=== PATIENT | female | born 2000 | race Caucasian/White ===

== ENCOUNTER 2020-01-26 21:10 | Emergency (ER) | payer OTHER ==
[2020-01-26] MEDS ORDERED: DIPH/PERTUSS(ACELL)/TETANUS VAC/PF 0.5 ML SYR (>=10YO) IM ONE ×2 (21:12→22:00)
[2020-01-26] MEDS ORDERED: LIDOCAINE 1% INJ-PF (10 MG/ML) 30 ML SDV INJ ONE ×2 (21:12→22:51)
--- NOTE | 2020-01-26 21:15 | ER Document Report ---
ED Medical Screen (RME) - General Chief Complaint: Arm Injury Stated Complaint: LEFT ARM CUT Time Seen by Provider: 01/26/20 21:12 Mode of Arrival: Ambulatory Information source: Patient Notes: Patient states she was running outside fell cutting her left forearm on an unknown object. Patient with large laceration to the volar aspect of the left forearm. No active bleeding. Patient does complain of some tingling to the left hand. I have greeted and performed a rapid initial assessment of this patient. A comprehensive ED assessment and evaluation of the patient, analysis of test results and completion of the medical decision making process will be conducted by additional ED providers. Physical Exam - Skin Skin irregularity: Laceration - 8 cm laceration to volar aspect of left forearm
[2020-01-26] MEDS ORDERED: LIDOCAINE 1% INJ-PF (10 MG/ML) 30 ML SDV ONE (21:40)
--- NOTE | 2020-01-26 21:45 | RADIOLOGY REPORT (SQ) ---
EXAM DESCRIPTION: XR FOREARM 2 VIEWS COMPLETED DATE/TME: 01/26/2020 21:12 CLINICAL HISTORY: 19 years, Female, fall, L FA lac COMPARISON: None. NUMBER OF VIEWS: 2 TECHNIQUE: Frontal and lateral radiographs were acquired LIMITATIONS: None. 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 Otherwise, visualized osseous structures appear normal without acute fracture or dislocation. IMPRESSION: No acute osseous anomaly. copyright 2010 [email or web address]- All Rights Reserved
--- NOTE | 2020-01-26 23:01 | ER Document Report ---
ED Extremity Problem, Upper - General Chief Complaint: Laceration Stated Complaint: LEFT ARM CUT Time Seen by Provider: 01/26/20 21:12 Mode of Arrival: Ambulatory Information source: Patient Notes: 19-year-old female presents to the emergency department with a complaint of a laceration to the left forearm. Apparently she was outside and states she fell not sure what she may have hit but sustained a 8 cm laceration across the left distal forearm. There is active bleeding a pressure dressing was applied and she was brought to the emergency department patient is not sure of her tetanus status. - Related Data Allergies/Adverse Reactions: No Known Allergies Allergy (Unverified 01/26/20 21:16) Past Medical History - General Information source: Patient - Social History Smoking Status: Never Smoker Chew tobacco use (# tins/day): No Frequency of alcohol use: None Drug Abuse: None Family History: Reviewed & Not Pertinent Patient has suicidal ideation: No Patient has homicidal ideation: No Review of Systems - Review of Systems Notes: Constitutional: Negative for fever. HENT: Negative for sore throat. Eyes: Negative for visual changes. Cardiovascular: Negative for chest pain. Respiratory: Negative for shortness of breath. Gastrointestinal: Negative for abdominal pain, vomiting or diarrhea. Genitourinary: Negative for dysuria. Musculoskeletal: Negative for back pain. Skin: + Laceration left forearm. Neurological: Negative for headaches, weakness or numbness. 10 point ROS negative except as marked above and in HPI. Physical Exam - Vital signs Vitals: Temp Pulse Resp BP Pulse Ox 97.7 F 128 H 16 139/89 H 98 01/26/20 21:12 01/26/20 21:12 01/26/20 21:12 01/26/20 21:12 01/26/20 21:12 - Notes Notes: PHYSICAL EXAMINATION: Physical Exam: General: Well-nourished well-developed obese female in no acute distress HEENT: NC/AT, pupils equal round and reactive to light, MM moist,nares clear, oropharynx clear, airway patent Neck: supple, no adenopathy, no masses. Good range of motion Lungs: clear, no wheezing, no rales no rhonchi CVS: Regular rate and rhythm no murmur gallop or rub Abdomen: Soft, active, nontender, no masses, no hepatosplenomegaly Ext: Range of motion in the left hand, good pulses, neurovascular otherwise intact. No edema, clubbing or cyanosis. Neuro: Alert and responsive, moving all 4 extremities on command, cranial nerves intact, no focal findings Skin: Clean edged 8 cm laceration across the distal third of the forearm, into the fatty tissue with bleeding. PSYCH: Normal mood, normal affect. Course - Re-evaluation Re-evalutation: 01/26/20 22:58 Patient with large laceration into the fatty tissue of the left forearm, there are 2 very superficial epidermis lacerations noted beside the laceration. Patient states that she has cats. Wound is suspicious with self-inflicted la ceration, however the patient is adamant that she was cut on something when she fell outside. Patient is given a Tdap booster and a wound repair is performed. - Vital Signs Vital signs: Temp Pulse Resp BP Pulse Ox 97.7 F 114 H 14 115/73 100 01/26/20 21:12 01/26/20 23:20 01/26/20 23:20 01/26/20 23:20 01/26/20 23:20 Procedures - Laceration/Wound Repair Left Volar Arm Time completed: 22:35 Wound length (cm): 8 Wound's Depth, Shape: Linear Laceration pre-procedure: Chloraprep applied Anesthetic type: 1% Lidocaine Volume Anesthetic (mLs): 15 Wound explored: Clean, No foreign body removed Irrigated w/ Saline (mLs): 12 Wound Repaired With: Sutures Suture Size/Type: 5:0, Vicryl, 4:0, Prolene - 12, 4-0 Prolene sutures were placed to close the skin. Good approximation and bleeding is controlled. Layer Closure?: Yes - 6, 5-0 Vicryl sutures were placed in the fatty tissue to approximate the de Deep Layer Suture Size/Type: 5:0 Number Deep Layer Sutures: 6 Post-procedure wound care: Sterile dressing applied Post-procedure NV exam normal: Yes Complications: No Notes: 01/26/20 23:03 Suture closed with good approximation patient tolerated procedure well without complications. Discharge - Discharge Clinical Impression: Laceration of left forearm Qualifiers: Encounter type: initial encounter Qualified Code(s): S51.812A - Laceration without foreign body of left forearm, initial encounter Condition: Good Disposition: HOME, SELF-CARE Instructions: Antibiotic Ointment Protection ([facility]), Laceration Care ([facility]), Prophylactic Antibiotic ([facility]), Tetanus Immunization Given ([facility]) Additional Instructions: You were treated for laceration of the left forearm, please change dressing daily, apply Neosporin for the first 3 days. Suture removal and 10 days. Please take the antibiotics as prescribed, you may return to the emergency department if you notice signs of infection or if you have other concerns. HOME CARE INSTRUCTIONS & INFORMATION: Thank you for choosing us for your medical needs. We hope you're satisfied with the care you received. After you leave, you must properly care for your problem and, at the same time, observe its progress. Any condition can change. Some illnesses can change rapidly over hours or days. If your condition worsens, return to the Emergency Department or see your physician promptly. ABOUT YOUR X-RAYS AND EKG'S: If you had an EKG or X-rays taken, they have been read by the Emergency Physician. The X-rays and EKG's will also be read by a Radiologist or Pump Stitcher within 24 hours. If discrepancies are noted, you will be notified by telephone. Please be certain the ED has a correct telephone number & address where you can be reached. Also, realize that some fractures or abnormalities do not show up on initial X-rays. If your symptoms continue, see your physician. ABOUT YOUR LABORATORY TEST: If you had laboratory tests, the results have been reviewed by the Emergency Physician. Some test results (for example cultures) may not be available for several days. You will be contacted if any test result shows you need additional treatment. Please be certain the ED has a correct telephone number and address where you can be reached. ABOUT YOUR MEDICATIONS: You will receive instructions on how to take your medicine on the prescription label you receive. Additional information may be provided by the Pharmacy. If you have questions afterwards, call the ED for c larification or further instructions. Some prescribed medications may cause drowsiness. Do not perform tasks such as driving a car or operating machinery without consulting your Pharmacist. If you feel you need a refill of pain medication, your condition will need re-evaluation. Please do not call for a refill of any medication. ABOUT YOUR SIGNATURE: Signature of this document acknowledges to followin. Understanding that you received emergency treatment and that you may be released before al medical problems are known or treated. Please be certain the ED has a correct phone number & address where you can be reached. 2. Acknowledgement that you will arrange for follow-up care as recommended. 3. Authorization for the Emergency Physician to provide information to your follow-up Physician in order to maximize your care. AT ANY TIME, IF YOUR SYMPTOMS CHANGE SIGNIFICANTLY OR WORSEN OR YOU DEVELOP NEW SYMPTOMS, RETURN TO THE EMERGENCY DEPARTMENT IMMEDIATELY FOR RE-EVALUATION. OUR GOAL IS TO PROVIDE EXCELLENT MEDICAL CARE! WE HOPE THAT WE HAVE MET YOUR EXPECTATIONS DURING YOUR EMERGENCY DEPARTMENT VISIT AND THAT YOU FEEL YOU HAVE RECEIVED EXCELLENT CARE! Prescriptions: Cephalexin Monohydrate [Keflex 500 mg Capsule] 500 mg PO Q8 10 Days capsule
[2020-01-26] MEDS ORDERED: CEPHALEXIN 500 MG CAPSULE PO ONE (23:07)
[2020-01-26 23:21] VITALS: BP 115/73
== END 2020-01-26 23:20 | disposition home or self-care (01) ==
LOC: ER 21:10
DX: S51.812A Laceration without foreign body of left forearm, initial encounter (principal); W26.9XXA Contact with unspecified sharp object(s), initial encounter; Z23 Encounter for immunization
CPT/HCPCS: 90471; 90715; 99283